=== PATIENT | male | born 1945 | race Caucasian/White ===

== ENCOUNTER 2024-05-08 18:43 | Emergency (ER) | payer MEDICARE ==
[~2024-05-08] VITALS: Ht 172.7 cm; Wt 78.9 kg
[2024-05-08] MEDS ORDERED: CEPH500 PO (20:59)
[2024-05-08] MEDS ORDERED: Cephalexin Monohydrate 500 MG Cap PO ONE (21:00)
== END 2024-05-08 21:07 | disposition home or self-care (01) ==
LOC: ER 18:43
DX: L08.9 Local infection of the skin and subcutaneous tissue, unspecified (principal)
CPT/HCPCS: 73140; 99283-25; A9270